=== PATIENT | female | born 1980 | race Caucasian/White ===

== ENCOUNTER 2022-09-30 14:04 | Outpatient (CLI) | payer BC | END 2022-09-30 14:05 | disposition home or self-care (01) | LOC: BURRAD 14:04 | PROVIDERS: ATTEND Family Medicine | DX: S46.911A Strain of unspecified muscle, fascia and tendon at shoulder and upper arm level, right arm, initial encounter (principal) ==

== ENCOUNTER 2024-04-07 17:07 | Outpatient (CLI) | payer BC | END 2024-04-07 17:08 | disposition home or self-care (01) | LOC: BURRAD 17:07 | PROVIDERS: ATTEND Family Medicine | DX: J98.01 Acute bronchospasm (principal); J40 Bronchitis, not specified as acute or chronic | CPT/HCPCS: 71046 ==